=== PATIENT | female | born 1990 | race Two or more races ===

== ENCOUNTER 2023-08-23 13:16 | Emergency (ER) | payer OTHER ==
[~2023-08-23] VITALS: Ht 160 cm; Wt 68.5 kg
== END 2023-08-23 17:44 | disposition home or self-care (01) ==
LOC: ER 13:17
DX: J10.1 Influenza due to other identified influenza virus with other respiratory manifestations (principal); R53.81 Other malaise; Z20.822 Contact with and (suspected) exposure to COVID-19